=== PATIENT | female | born 1975 | race Caucasian/White ===

== ENCOUNTER 2025-03-14 14:30 | Emergency (ER) | payer BC ==
[~2025-03-14] VITALS: Ht 167.6 cm; Wt 61.7 kg
[2025-03-14 14:45] VITALS: BP 91/56
[2025-03-14] MEDS ORDERED: LIDOCAINE HCL 1% 20 ML VIAL ONE (16:22)
[2025-03-14] MEDS ORDERED: HYDROCODONE/APAP 5-325MG TABLET ONE (16:45)
[2025-03-14] MEDS: HYDROCODONE/APAP 5-325MG TABLET PO ONE (16:46)
[2025-03-14] MEDS: LIDOCAINE HCL 1% 20 ML VIAL IJ ONE (17:06)
[2025-03-14] MEDS ORDERED: AMOXICILLIN-CLAVUL 875-125MG TABLET ONE (17:14)
[2025-03-14] MEDS ORDERED: DOXY100C5 PO (17:14)
[2025-03-14] MEDS ORDERED: DOXYCYCLINE HYCLATE 100 MG TABLET ONE (17:14)
[2025-03-14] MEDS ORDERED: AMOX-430 PO (17:14)
[2025-03-14] MEDS: DOXYCYCLINE HYCLATE 100 MG TABLET PO ONE (17:22)
[2025-03-14] MEDS: AMOXICILLIN-CLAVUL 875-125MG TABLET PO ONE (17:22)
[2025-03-14 17:29] VITALS: BP 91/56; TEMP 97.8; O2SAT 95
== END 2025-03-14 17:29 | disposition home or self-care (01) ==
LOC: ER 14:30
DX: L02.31 Cutaneous abscess of buttock (principal); F17.200 Nicotine dependence, unspecified, uncomplicated; Z88.7 Allergy status to serum and vaccine
CPT/HCPCS: A4606; A4663; J3490

== ENCOUNTER 2025-03-16 15:39 | Emergency (ER) | payer BC ==
[~2025-03-16] VITALS: Ht 167.6 cm; Wt 61.7 kg
[~2025-03-16 15:39] MED LIST: AMOX-430 PO; DOXY100C5 PO
[2025-03-16 15:46] VITALS: BP 136/90
[2025-03-16] MEDS ORDERED: LIDOCAINE 1%-EPI 1:100,000 20 ML VIAL ONE (15:58)
[2025-03-16] MEDS: LIDOCAINE 2%-EPI 1:100,000 20 ML VIAL IJ ONE (16:02)
[2025-03-16 16:55] VITALS: BP 136/90; TEMP 98.4; O2SAT 98
[2025-03-17] MEDS ORDERED: SULF1TAB48 PO (19:32)
[2025-03-17] MEDS ORDERED: HYDR-3972 PO (19:49)
== END 2025-03-16 16:55 | disposition home or self-care (01) ==
LOC: ER 15:39
DX: L02.31 Cutaneous abscess of buttock (principal); Z88.7 Allergy status to serum and vaccine
CPT/HCPCS: 99283; J3490; A4606; A4663

== ENCOUNTER 2025-03-17 19:11 | Emergency (ER) | payer BC ==
[~2025-03-17] VITALS: Ht 167.6 cm; Wt 61.2 kg
[2025-03-17] MEDS ORDERED: SULF1TAB48 PO (19:32)
[2025-03-17 19:36] VITALS: BP 130/86; O2SAT 100
[2025-03-17] MEDS ORDERED: SULFAMETH/TRIMETH 800/160 MG TABLET ONE (19:48)
[2025-03-17] MEDS: SULFAMETH/TRIMETH 800/160 MG TABLET PO ONE (19:49)
[2025-03-17] MEDS ORDERED: HYDR-3972 PO (19:49)
== END 2025-03-17 19:49 | disposition home or self-care (01) ==
LOC: ER 19:11
DX: Z48.817 Encounter for surgical aftercare following surgery on the skin and subcutaneous tissue (principal); F17.200 Nicotine dependence, unspecified, uncomplicated; Z88.7 Allergy status to serum and vaccine
CPT/HCPCS: A4606; A4663

== ENCOUNTER 2025-03-22 13:32 | Emergency (ER) | payer BC ==
[~2025-03-22] VITALS: Ht 167.6 cm; Wt 59.0 kg
[~2025-03-22 13:32] MED LIST changes: +HYDR-3972 PO; +SULF1TAB48 PO
[2025-03-22 13:37] VITALS: BP 139/93
[2025-03-22] MEDS ORDERED: HYDROCODONE/APAP 10-325 MG TABLET ONE (14:35)
[2025-03-22] MEDS: HYDROCODONE/APAP 10-325 MG TABLET PO ONE (14:36)
[2025-03-22 15:01] LABS: PLATELET COUNT (AUTO) 699 K/uL (179-408); RED BLOOD CELL COUNT(AUTO) 4.29 MIL/uL (3.63-4.92); RED CELL DISTRIBUTION WIDTH 13.8 % (12.3-17.7); WHITE BLOOD COUNT (AUTO) 6.2 K/uL (3.8-11.8)
[2025-03-22] MEDS ORDERED: HYDR-3980 PO (15:01)
[2025-03-22 15:06] LABS: CREATININE 0.7 mg/dL (0.6-1.3); SODIUM SERUM 138.0 mmol/L (136-145); UREA NITROGEN, BLOOD 21.0 mg/dL (7-18)
[2025-03-22 15:15] VITALS: BP 122/78; O2SAT 100
== END 2025-03-22 15:21 | disposition home or self-care (01) ==
LOC: ER 13:32
DX: L02.91 Cutaneous abscess, unspecified (principal); M54.6 Pain in thoracic spine; F17.200 Nicotine dependence, unspecified, uncomplicated; Z88.7 Allergy status to serum and vaccine
CPT/HCPCS: 36415; 85025; 87070; A4606; A4663

== ENCOUNTER 2025-04-10 17:15 | Emergency (ER) | payer BC ==
[~2025-04-10] VITALS: Ht 167.6 cm; Wt 59.0 kg
[~2025-04-10 17:15] MED LIST changes: +AMOX-319 PO; -AMOX-430 PO; +HYDR-3980 PO
[2025-04-10 17:33] VITALS: BP 116/73
[2025-04-10] MEDS ORDERED: IV NORMAL SALINE 1000 ML BAG IV ONE (18:15)
[2025-04-10] MEDS ORDERED: SULF1TAB48 PO (18:45)
[2025-04-10] MEDS ORDERED: CEPH500C2 PO (18:45)
[2025-04-10 18:53] VITALS: BP 116/73; TEMP 98.1; O2SAT 99
[2025-04-12] MEDS ORDERED: FENTANYL CITRATE 100 MCG/2 ML AMPUL ONE (15:39)
[2025-04-12] MEDS ORDERED: MIDAZOLAM HCL 2 MG/2 ML VIAL ONE (15:40)
[2025-04-17] MEDS ORDERED: Acidophilus/Bulgaricus PO (16:33)
[2025-04-17] MEDS ORDERED: PANT40TA49 PO (16:33)
[2025-04-17] MEDS ORDERED: MAGN400O6 PO (16:33)
[2025-04-17] MEDS ORDERED: ACET-3752 PO (16:33)
[2025-04-17] MEDS ORDERED: [UNRECOGNIZED DRUG - CODE] IV (16:33)
[2025-04-17] MEDS ORDERED: DOCU-141 PO (16:33)
[2025-04-17] MEDS ORDERED: ONDA4VIA5 IV (16:33)
[2025-04-17] MEDS ORDERED: HYDR1DIS2 IV (16:33)
[2025-04-17] MEDS ORDERED: ALPR0.25 PO (16:33)
== END 2025-04-10 18:54 | disposition left against medical advice (07) ==
LOC: ER 17:21
DX: L02.31 Cutaneous abscess of buttock (principal); F17.200 Nicotine dependence, unspecified, uncomplicated; R00.2 Palpitations; Z53.29 Procedure and treatment not carried out because of patient's decision for other reasons; Z88.7 Allergy status to serum and vaccine
CPT/HCPCS: A4606; A4663; J2250; J3010

== ENCOUNTER 2025-04-10 20:26 | Inpatient (IN) | payer BC ==
[~2025-04-10] VITALS: Ht 167.6 cm; Wt 59.0 kg
[~2025-04-10 20:26] MED LIST changes: +CEPH500C2 PO
[2025-04-10 21:52] LABS: PLATELET COUNT (AUTO) 399 K/uL (179-408); RED BLOOD CELL COUNT(AUTO) 4.10 MIL/uL (3.63-4.92); RED CELL DISTRIBUTION WIDTH 13.8 % (12.3-17.7); WHITE BLOOD COUNT (AUTO) 6.2 K/uL (3.8-11.8)
[2025-04-10] MEDS ORDERED: MORPHINE SULFATE 4 MG/1 ML DISP.SYRIN ONE ×2 (21:56→22:44)
[2025-04-10 21:57] LABS: CREATININE 0.6 mg/dL (0.6-1.3); SODIUM SERUM 141.0 mmol/L (136-145); UREA NITROGEN, BLOOD 12.0 mg/dL (7-18)
[2025-04-10] MEDS: IV NORMAL SALINE 1000 ML BAG IV ONE (22:00)
[2025-04-10] MEDS: MORPHINE SULFATE 4 MG/1 ML DISP.SYRIN IV ONE ×2 (22:01→22:48)
[2025-04-10 22:03] LABS: ASPARTATE AMINOTRANSFERASE 14.0 U/L (15-37); TOTAL PROTEIN, SERUM 7.7 g/dL (6.4-8.2)
[2025-04-10] MEDS ORDERED: VANCOMYCIN IV 200 ML ONE (22:44)
[2025-04-10] MEDS ORDERED: ACETAMINOPHEN 325 MG TABLET PO PRN (23:15)
[2025-04-10] MEDS ORDERED: REMEDY ESSENTIAL ZINC PASTE 113 GM TP PRN (23:15)
[2025-04-11 01:24] VITALS: BP 118/75; TEMP 98; O2SAT 97
[2025-04-11] MEDS ORDERED: TRAMADOL HCL 50 MG TABLET PO PRN (01:30)
[2025-04-11] MEDS: ACETAMINOPHEN/CODEINE 300-30 MG TABLET PO PRN (02:38)
[2025-04-11 05:17] VITALS: BP 122/74; TEMP 98; O2SAT 95
[2025-04-11] MEDS: VANCOMYCIN HCL 750 MG in IV DEXTROSE 5% 250 ML IV SCH (09:15)
[2025-04-11] MEDS: MORPHINE SULFATE 2 MG/1 ML DISP.SYRIN IV PRN (11:10)
[2025-04-11 12:00] VITALS: BP 140/81; TEMP 97.4; O2SAT 97
[2025-04-11] MEDS: PIPERACILLIN SODIUM/TAZOBACTAM 3.375 G in IV DEXTROSE 5% 50 ML IV SCH (15:42)
[2025-04-11 16:00] VITALS: BP 131/72; TEMP 97.7; O2SAT 98
[2025-04-11 16:09] LABS: PLATELET COUNT (AUTO) 329 K/uL (179-408); RED BLOOD CELL COUNT(AUTO) 3.68 MIL/uL (3.63-4.92); RED CELL DISTRIBUTION WIDTH 13.8 % (12.3-17.7); WHITE BLOOD COUNT (AUTO) 5.2 K/uL (3.8-11.8)
[2025-04-11 16:20] LABS: CREATININE 0.8 mg/dL (0.6-1.3); SODIUM SERUM 139.0 mmol/L (136-145); UREA NITROGEN, BLOOD 9.0 mg/dL (7-18)
[2025-04-11] MEDS ORDERED: IOHEXOL 300MG/ML 100 ML INFUS..BTL ONE (19:15)
[2025-04-11] MEDS ORDERED: SWABABLE VALVE TRANSFER SET EA MC ONE (19:15)
[2025-04-11] MEDS ORDERED: IV NORMAL SALINE 250 ML IV ONE (19:16)
[2025-04-11 19:47] VITALS: BP 121/71; TEMP 97.8; O2SAT 92
[2025-04-12 04:49] VITALS: BP 127/68; TEMP 97.6; O2SAT 98
[2025-04-12 07:33] LABS: CREATININE 0.7 mg/dL (0.6-1.3); SODIUM SERUM 141.0 mmol/L (136-145); UREA NITROGEN, BLOOD 8.0 mg/dL (7-18)
[2025-04-12] MEDS: MORPHINE SULFATE 2 MG/1 ML DISP.SYRIN IV ONE (09:44)
[2025-04-12] MEDS: ONDANSETRON 4 MG/2 ML VIAL IV PRN (09:46)
[2025-04-12] MEDS: VANCOMYCIN HCL 750 MG in IV DEXTROSE 5% 250 ML IV SCH (09:47)
[2025-04-12] MEDS: IV D5/ 0.9% NACL 1,000 ML IV PRN (09:48)
[2025-04-12] MEDS: ALPRAZOLAM 0.5 MG TABLET PO ONE (09:54)
[2025-04-12 11:55] VITALS: BP 108/58; TEMP 97.6; O2SAT 98
[2025-04-12] MEDS ORDERED: PROPOFOL 200 MG/20 ML BOTTLE ONE (15:45)
[2025-04-12] MEDS ORDERED: DEXAMETHASONE SOD PHOSPHATE 4 MG INJ ONE (15:45)
[2025-04-12] MEDS ORDERED: CEFAZOLIN 1 G VIAL ONE (15:45)
[2025-04-12] MEDS ORDERED: ONDANSETRON 4 MG/2 ML VIAL ONE (15:45)
[2025-04-12] MEDS: HYDROMORPHONE 1 MG/1 ML DISP.SYRIN IV PRN ×2 (17:24→22:03)
[2025-04-12 18:04] VITALS: BP 97/61
[2025-04-12 18:35] VITALS: BP 109/59; TEMP 98.2; O2SAT 95
[2025-04-12 19:47] VITALS: BP 112/70; TEMP 97.8; O2SAT 95
[2025-04-13] MEDS ORDERED: IOHEXOL 300MG/ML 100 ML INFUS..BTL ONE (01:55)
[2025-04-13] MEDS ORDERED: SWABABLE VALVE TRANSFER SET EA MC ONE (01:55)
[2025-04-13] MEDS ORDERED: IV NORMAL SALINE 250 ML IV ONE (01:55)
[2025-04-13 04:27] VITALS: BP 128/77; TEMP 98.5; O2SAT 99
[2025-04-13 05:23] LABS: CREATININE 0.8 mg/dL (0.6-1.3); SODIUM SERUM 138.0 mmol/L (136-145); UREA NITROGEN, BLOOD 7.0 mg/dL (7-18)
[2025-04-13] MEDS ORDERED: MAG HYDROX/AL HYDROX/SIMETH 30 ML LIQUID UDC PO PRN (09:45)
[2025-04-13] MEDS: PANTOPRAZOLE SODIUM 40 MG TABLET.DR PO SCH (10:12)
[2025-04-13] MEDS: HYDROMORPHONE 1 MG/1 ML DISP.SYRIN IV ONE (10:12)
[2025-04-13 11:39] VITALS: BP 120/71; TEMP 98.4; O2SAT 98
[2025-04-13] MEDS: HYDROCODONE/APAP 5-325MG TABLET PO PRN (12:05)
[2025-04-13] MEDS: MAGNESIUM HYDROXIDE 30 ML LIQUID UDC PO PRN (12:05)
[2025-04-13 15:44] VITALS: BP 134/72; TEMP 98.4; O2SAT 96
[2025-04-13] MEDS: ALPRAZOLAM 0.25 MG TABLET PO ONE (16:14)
[2025-04-13] MEDS: ACETAMINOPHEN 325 MG TABLET PO SCH (18:11)
[2025-04-13 19:10] VITALS: BP 116/62; TEMP 98.5; O2SAT 99
[2025-04-13] MEDS: OXYCODONE HCL 5 MG TABLET PO PRN (22:07)
[2025-04-14] MEDS: HYDROMORPHONE 1 MG/1 ML DISP.SYRIN IV PRN (05:40)
[2025-04-14 05:49] VITALS: BP 111/63; TEMP 99.7; O2SAT 90
[2025-04-14 08:52] LABS: PLATELET COUNT (AUTO) 330 K/uL (179-408); RED BLOOD CELL COUNT(AUTO) 3.64 MIL/uL (3.63-4.92); RED CELL DISTRIBUTION WIDTH 14.4 % (12.3-17.7); WHITE BLOOD COUNT (AUTO) 8.0 K/uL (3.8-11.8)
[2025-04-14 10:48] VITALS: BP 106/54; TEMP 98.8; O2SAT 98
[2025-04-14 16:01] VITALS: BP 115/64; TEMP 97.7; O2SAT 100
[2025-04-14] MEDS ORDERED: MAGNESIUM HYDROXIDE 30 ML LIQUID UDC PO PRN (18:00)
[2025-04-14 19:14] VITALS: BP 134/77; TEMP 98; O2SAT 98
[2025-04-14] MEDS: ACIDOPHILUS/BULGARICUS CHEW TAB PO SCH (21:10)
[2025-04-14] MEDS: DOCUSATE SODIUM 100 MG CAPSULE PO SCH (21:10)
[2025-04-14] MEDS: TRAZODONE 50 MG TABLET NG ONE (23:37)
[2025-04-15] MEDS: OXYCODONE HCL 5 MG TABLET PO PRN (01:20)
[2025-04-15 05:14] VITALS: BP 102/62; TEMP 98.4; O2SAT 95
[2025-04-15 11:06] VITALS: BP 124/72; TEMP 98.2; O2SAT 92
[2025-04-15 13:01] LABS: PLATELET COUNT (AUTO) 348 K/uL (179-408); RED BLOOD CELL COUNT(AUTO) 3.81 MIL/uL (3.63-4.92); RED CELL DISTRIBUTION WIDTH 14.2 % (12.3-17.7); WHITE BLOOD COUNT (AUTO) 5.4 K/uL (3.8-11.8)
[2025-04-15 13:32] LABS: ASPARTATE AMINOTRANSFERASE 9.0 U/L (15-37); CREATININE 0.7 mg/dL (0.6-1.3); SODIUM SERUM 141.0 mmol/L (136-145); TOTAL PROTEIN, SERUM 7.2 g/dL (6.4-8.2); UREA NITROGEN, BLOOD 10.0 mg/dL (7-18)
[2025-04-15 15:34] VITALS: BP 111/70; TEMP 97.3; O2SAT 92
[2025-04-15] MEDS ORDERED: ACETAMINOPHEN 325 MG TABLET PO PRN (16:15)
[2025-04-15 19:05] VITALS: BP 136/69; TEMP 98.3; O2SAT 100
[2025-04-16] MEDS: ZOLPIDEM 5 MG TABLET PO PRN (02:07)
[2025-04-16 05:44] VITALS: BP 106/66; TEMP 98; O2SAT 100
[2025-04-16 11:23] VITALS: BP 107/53; TEMP 98.2; O2SAT 96
[2025-04-16] MEDS: PIPERACILLIN SODIUM/TAZOBACTAM 3.375 G in IV DEXTROSE 5% 100 ML IV SCH (13:30)
[2025-04-16 16:03] VITALS: BP 131/76; TEMP 97.5; O2SAT 98
[2025-04-17 10:03] VITALS: BP 129/82
[2025-04-17 11:49] VITALS: BP 148/90; TEMP 98.2; O2SAT 96
[2025-04-17] MEDS: ALPRAZOLAM 0.25 MG TABLET PO PRN (15:26)
[2025-04-17 16:00] VITALS: BP 114/76; TEMP 97.5; O2SAT 99
[2025-04-17] MEDS ORDERED: PANT40TA49 PO (16:33)
[2025-04-17] MEDS ORDERED: DOCU-141 PO (16:33)
[2025-04-17] MEDS ORDERED: HYDR1DIS2 IV (16:33)
[2025-04-17] MEDS ORDERED: MAGN400O6 PO (16:33)
[2025-04-17] MEDS ORDERED: ACET-3752 PO (16:33)
[2025-04-17] MEDS ORDERED: ALPR0.25 PO (16:33)
[2025-04-17] MEDS ORDERED: Acidophilus/Bulgaricus PO (16:33)
[2025-04-17] MEDS ORDERED: ONDA4VIA5 IV (16:33)
[2025-04-17] MEDS ORDERED: [UNRECOGNIZED DRUG - CODE] IV (16:33)
[2025-04-17 16:41] VITALS: BP 112/60
[2025-04-17 21:17] VITALS: BP 132/70; TEMP 97.7; O2SAT 99
[2025-05-12] MEDS ORDERED: CEFAZOLIN 1 G VIAL ONE (15:45)
[2025-05-12] MEDS ORDERED: DEXAMETHASONE SOD PHOSPHATE 4 MG INJ ONE (15:45)
[2025-05-12] MEDS ORDERED: PROPOFOL 200 MG/20 ML BOTTLE ONE (15:45)
[2025-05-12] MEDS ORDERED: ONDANSETRON 4 MG/2 ML VIAL ONE (15:45)
== END 2025-04-17 21:00 | disposition short-term general hospital (02) | DRG 857 ==
LOC: ER 20:33 → MEDSURG3 23:40 → TELE3 04-13 15:57 → MEDSURG3 04-13 18:30
PROVIDERS: ADMIT Student in an Organized Health Care Education/Training Program; ATTEND Internal Medicine
PROC: 0D9P0ZZ Drainage of Rectum, Open Approach (ICD-10-PCS; principal; 2025-04-12 16:30)
DX: T81.43XA Infection following a procedure, organ and space surgical site, initial encounter (principal); K61.1 Rectal abscess; L02.31 Cutaneous abscess of buttock; F17.290 Nicotine dependence, other tobacco product, uncomplicated; F41.9 Anxiety disorder, unspecified; K62.9 Disease of anus and rectum, unspecified; Z53.29 Procedure and treatment not carried out because of patient's decision for other reasons; Y81.8 Miscellaneous general- and plastic-surgery devices associated with adverse incidents, not elsewhere classified; Y92.89 Other specified places as the place of occurrence of the external cause
CPT/HCPCS: 36415; 72193; 83735; 84100; 84443; 85025; 85730; 87070; A4663; A6209; A6213; G0378; J0690; J1100; J1171; J2250; J2270; J2405; J2543; J3010; J3373; J3490; J7040; J7042; J7050; J7070; Q9967